=== PATIENT | female | born 1970 | race Caucasian/White ===

== ENCOUNTER 2020-01-15 07:42 | Emergency (ER) | payer BC ==
[2020-01-15] MEDS ORDERED: Albuterol 200 PUFF (6.7GM INHALER) ONE (08:58)
[2020-01-15] MEDS ORDERED: Dexamethasone 10 MG/ML VIAL ONE (08:58)
--- NOTE | 2020-01-15 09:06 | RAD ---
PORTABLE CHEST: Date: 01/15/2020 PROVIDED CLINICAL HISTORY: Cough and shortness of breath. COVID-positive. FINDINGS: Evaluation is limited by patient body habitus. The cardiac and mediastinal silhouette is within sisi l limits. There is patchy bilateral air space and interstitial opacity bilaterally. There is no pleur al fluid or pneumothorax apparent. IMPRESSION: Lung parenchymal findings typical for COVID pneumonia. POS: FERNANDO
[2020-01-15 09:45] LABS: #Basophils 0.1 thou/uL (0.0-0.2); #Lymphocytes 1.2 thou/uL (1.20-3.40); #Monocytes 0.4 thou/uL (0.11-0.59); #Neutrophils 3.6 thou/uL (1.40-6.50); %Basophils 1.6 % (0.0-1.0); %Eosinophils 0.2 % (0.0-10.0); %Lymphocytes 23.2 % (21.0-51.0); %Monocytes 8.2 % (0.0-10.0); %Neutrophils 66.8 % (42.0-75.0); Hemoglobin 14.1 g/dL (12.0-16.0); Mean Corpuscular HGB CONC 33.6 g/dL (32.0-36.0); Mean Corpuscular Hemoglobin 31.4 pg (27.0-31.0); Mean Corpuscular Volume 93.3 fL (78.0-98.0); Mean Platelet Volume 7.2 fL (7.4-10.4); Platelet Count 157 thou/uL (130-400); RBC Distribution Width 12.2 % (11.5-14.5); White Blood Cell (WBC) Count 5.4 thou/uL (4.8-10.8)
[2020-01-15 10:09] LABS: ALT (SGPT) 40 U/L (8-55); AST (SGOT) 38 U/L (5-34); Albumin 3.5 g/dL (3.5-5.0); Alkaline Phosphatase 70 U/L (40-110); Anion Gap 13 mmol/L (10-20); BUN (Urea Nitrogen) 8 mg/dL (7.0-18.7); Bilirubin, Total 0.2 mg/dL (0.2-1.2); Calc. Creatinine Clearance 0 mL/min (70-130); Calcium 9.1 mg/dL (7.8-10.44); Carbon Dioxide 26 mmol/L (22-29); Chloride 106 mmol/L (98-107); Estimated GFR-MDRD Greater than 90; Globulin 3.2 g/dL (2.4-3.5); Glucose 134 mg/dL (70-105); Potassium 3.3 mmol/L (3.5-5.1); Protein, Total 6.7 g/dL (6.0-8.3); Sodium 142 mmol/L (136-145)
--- NOTE | 2020-01-15 11:09 | CT ---
CT PULMONARY ANGIOGRAM WITH IV CONTRAST AND 3-D POSTPROCESSING: HISTORY:Dyspnea, cough,COVID 19 positive FINDINGS: The central pulmonary arterial vasculature demonstrates no filling defects to suggest central pulmona ry embolism. The peripheral branches are inadequately opacified for satisfactory evaluation. Peripheral pulmonary embolism cannot be excluded on this study. The thoracic aorta is well opacified without aneurysm or dissection. No pleural or pericardial effusions are seen. There are multifocal patchy groundglass infiltrates bilaterally. A 4 mm peripheral nodule is seen in the left lower lobe. No pneumothoraces are noted. There are degenerative changes in the spine. Upper abdominal tomograms demonstrate fatty infiltration of the liver. IMPRESSION: 1. No CT evidence of central pulmonary embolism. Peripheral embolism cannot be excluded. 2. Parenchymal changes are consistent with COVID 19 pneumonia.
== END 2020-01-15 11:30 | disposition home or self-care (01) ==
LOC: ERS 07:42
DX: U07.1 COVID-19 (principal); J12.89 Other viral pneumonia
CPT/HCPCS: 36415; 71045; 71275; 80053; 83605; 84484; 85025; 85379; 93005; 96374; J1100

== ENCOUNTER 2025-03-02 15:51 | Outpatient (CLI) | payer OTHER | END 2025-03-02 15:52 | disposition home or self-care (01) | LOC: BICMAMMO 15:51 | PROVIDERS: ATTEND Registered Nurse | DX: Z12.31 Encounter for screening mammogram for malignant neoplasm of breast (principal); Z80.3 Family history of malignant neoplasm of breast; Z85.41 Personal history of malignant neoplasm of cervix uteri | CPT/HCPCS: 77063; 77067 ==